=== PATIENT | female | born 1945 | race Caucasian/White ===

== ENCOUNTER 2018-12-07 16:00 | Outpatient (RCR) | payer MEDICARE, OTHER | END 2018-12-10 | LOC: PT 16:00 | PROVIDERS: ATTEND Specialist | DX: M47.816 Spondylosis without myelopathy or radiculopathy, lumbar region (principal) | CPT/HCPCS: 97139 ==

== ENCOUNTER 2018-12-30 16:00 | Outpatient (RCR) | payer MEDICARE, OTHER | END 2019-01-09 | LOC: PT 16:00 | PROVIDERS: ATTEND Specialist | DX: M47.816 Spondylosis without myelopathy or radiculopathy, lumbar region (principal); M54.5 Low back pain; M62.81 Muscle weakness (generalized); R26.2 Difficulty in walking, not elsewhere classified; M79.605 Pain in left leg; M79.662 Pain in left lower leg ==

== ENCOUNTER → 2020-01-10 | Outpatient (RCR) | payer MEDICARE, OTHER | LOC: PT 11:07 | PROVIDERS: ATTEND Specialist | DX: M75.42 Impingement syndrome of left shoulder (principal); M75.41 Impingement syndrome of right shoulder ==

== ENCOUNTER 2020-02-09 09:55 | Outpatient (RCR) | payer MEDICARE, OTHER | END 2020-02-10 | LOC: PT 09:55 | PROVIDERS: ATTEND Specialist | DX: M75.42 Impingement syndrome of left shoulder (principal); M75.41 Impingement syndrome of right shoulder | CPT/HCPCS: 97139 ==

== ENCOUNTER 2020-02-15 11:22 | Outpatient (RCR) | payer MEDICARE, OTHER | END 2020-03-12 | LOC: PT 11:22 | PROVIDERS: ATTEND Specialist | DX: M75.42 Impingement syndrome of left shoulder (principal); M75.41 Impingement syndrome of right shoulder ==

== ENCOUNTER 2024-10-01 20:18 | Inpatient (IN) | payer MEDICARE, OTHER ==
[~2024-10-01] VITALS: Ht 160 cm; Wt 80.7 kg
[2024-10-01 21:06] LABS: BASOPHILS % 0.2 % (0.0-1.0); EOSINOPHILS % 0.2 % (0.0-6.0); LYMPHOCYTES % 5.1 % (18.0-39.1); MONOCYTES % 4.4 % (4.4-11.3); NEUTROPHILS % 89.2 % (38.7-80.0); RED CELL DISTRIBUTION WIDTH 15.7 % (11.7-14.4)
[2024-10-01] MEDS: SODIUM CHLORIDE 0.9% 1000ML 1,000 ML IV ONE ×2 (21:12→23:21)
[2024-10-01 21:29] LABS: EST GLOMERULAR FILTRATION RATE 49.0 ML/MIN (>=60)
[2024-10-01] MEDS ORDERED: IOPAMIDOL 370 MG/ML 100 ML INFUS..BTL INJ ONE (21:52)
[2024-10-01] MEDS: CEFEPIME 2 GM in SODIUM CHLORIDE 0.9% 100 ML IV ONE (22:56)
[2024-10-01] MEDS: Morphine 4mg INJECTION 4 MG/ML INJ IV ONE (23:21)
[2024-10-02] VITALS (42 sets, daily range): BP systolic 90–150; BP diastolic 55–117; PULSE 27–94; RESP 14–36; TEMP 98–99.8; O2SAT 78–100
[2024-10-02] MEDS: ASPIRIN 81 MG CHEW TAB PO ONE (01:31)
[2024-10-02] MEDS: ALBUTEROL SULF 0.083% NEB SOLN 3 ML NEB NEB SCH (02:00)
[2024-10-02] MEDS: KCL 20MEQ/.9 SOD CHL 1,000 ML IV ONE (02:15)
[2024-10-02 02:33] LABS: LEUKOCYTE ESTERASE ,URINE NEGATIVE (NEGATIVE); PROTEIN,URINE DIPSTICK NEGATIVE (NEGATIVE); URINE UROBILINOGEN 0.2 mg/dL (0.2 - 1)
[2024-10-02 02:56] LABS: EPITHELIAL CELLS,URINE FEW /LPF; WBC,URINE (MAN) 0-5 /HPF (0-5)
[2024-10-02] MEDS: SODIUM CHLORIDE 0.9% 1000ML 1,000 ML IV ONE (03:16)
[2024-10-02] MEDS: ALBUTEROL SULF 0.083% NEB SOLN 3 ML NEB NEB STA (05:55)
[2024-10-02] MEDS: IPRATROPIUM BROMIDE 0.02% 2.5 ML NEB NEB ONE (05:56)
[2024-10-02] MEDS: NOREPINEPHRINE 8 MG/D5W 250 ML 250 ML IV SCH (06:21)
[2024-10-02] MEDS: IPRATROPIUM BROMIDE 0.02% 2.5 ML NEB NEB SCH (09:56)
[2024-10-02] MEDS ORDERED: ALBUTEROL SULF 0.083% NEB SOLN 3 ML NEB NEB PRN (11:15)
[2024-10-02] MEDS: METHYLPREDNISOLONE SOD SUCC 40 MG/ML VIAL 1ML IV ONE (11:38)
[2024-10-02] MEDS: CEFTRIAXONE 2 GM in SODIUM CHLORIDE 0.9% 100 ML IV SCH (11:38)
[2024-10-02] MEDS: POTASSIUM CHLORIDE 20MEQ/100ML 200 ML IV ONE (11:39)
[2024-10-02] MEDS: MUPIROCIN 2% OINT 22 GM TUBE TOP SCH (11:39)
[2024-10-02 14:19] LABS: CORONAVIRUS COVID-19 AG NEGATIVE (NEGATIVE)
[2024-10-02] MEDS ORDERED: ANORO ELLIPTA1 EACH (16:37)
[2024-10-02] MEDS ORDERED: LISINOPRIL5 MG PO (16:38)
[2024-10-02] MEDS: ALBUTEROL SULF 0.083% NEB SOLN 3 ML NEB NEB PRN (19:13)
[2024-10-03] VITALS (31 sets, daily range): BP systolic 115–184; BP diastolic 62–89; PULSE 69–96; RESP 17–33; TEMP 97.4–98.1; O2SAT 89–100
[2024-10-03] MEDS: IPRATROPIUM BROMIDE 0.02% 2.5 ML NEB NEB PRN (06:14)
[2024-10-03 06:44] LABS: BASOPHILS % 0.2 % (0.0-1.0); EOSINOPHILS % 0.0 % (0.0-6.0); LYMPHOCYTES % 7.0 % (18.0-39.1); MONOCYTES % 4.7 % (4.4-11.3); NEUTROPHILS % 87.4 % (38.7-80.0); RED CELL DISTRIBUTION WIDTH 16.0 % (11.7-14.4)
[2024-10-03 06:54] LABS: EST GLOMERULAR FILTRATION RATE 70.0 ML/MIN (>=60)
[2024-10-03] MEDS: GUAIFENESIN 600MG/DEXTROMETHORPHAN 30MG TABSR PO SCH (08:56)
[2024-10-03] MEDS: METHYLPREDNISOLONE SOD SUCC 40 MG/ML VIAL 1ML IV ONE (11:17)
[2024-10-03 12:30] LABS: BAND NEUTROPHILS % (MANUAL) 7 %; LYMPHOCYTES % (MANUAL) 2 % (19-48); MONOCYTES % (MANUAL) 2 % (3.4-9.0); NEUTROPHILS % (MANUAL) 88 % (40-74); REACTIVE LYMPHOCYTES 1
[2024-10-03 12:31] LABS: PLATELET ESTIMATE ADEQUATE; PLATELET MORPHOLOGY COMMENT NORMAL; RBC MORPHOLOGY COMMENT NORMAL
[2024-10-04] VITALS (24 sets, daily range): BP systolic 131–176; BP diastolic 72–99; PULSE 61–100; RESP 17–38; TEMP 97.9–98.6; O2SAT 96–100
[2024-10-04 06:36] LABS: BASOPHILS % 0.1 % (0.0-1.0); EOSINOPHILS % 0.0 % (0.0-6.0); LYMPHOCYTES % 8.3 % (18.0-39.1); MONOCYTES % 5.5 % (4.4-11.3); NEUTROPHILS % 85.6 % (38.7-80.0); RED CELL DISTRIBUTION WIDTH 15.9 % (11.7-14.4)
[2024-10-04 06:54] LABS: EST GLOMERULAR FILTRATION RATE 78.0 ML/MIN (>=60)
[2024-10-04] MEDS: METHYLPREDNISOLONE SOD SUCC 40 MG/ML VIAL 1ML IV ONE (10:24)
[2024-10-04] MEDS: LORAZEPAM INJ 2 MG/ML VIAL IV ONE (11:13)
[2024-10-04] MEDS ORDERED: LORAZEPAM INJ 2 MG/ML VIAL IV ONE (11:15)
[2024-10-04] MEDS ORDERED: IOPAMIDOL 370 MG/ML 100 ML INFUS..BTL INJ ONE (11:29)
[2024-10-04] MEDS: DEXMEDETOMIDINE 400MCG/NS100ML 100 ML IV PRN (14:25)
[2024-10-05] VITALS (23 sets, daily range): BP systolic 103–160; BP diastolic 58–119; PULSE 37–85; RESP 17–29; TEMP 96.8–98.3; O2SAT 89–100
[2024-10-05 06:12] LABS: BASOPHILS % 0.2 % (0.0-1.0); EOSINOPHILS % 0.1 % (0.0-6.0); LYMPHOCYTES % 15.4 % (18.0-39.1); MONOCYTES % 6.4 % (4.4-11.3); NEUTROPHILS % 77.4 % (38.7-80.0); RED CELL DISTRIBUTION WIDTH 15.8 % (11.7-14.4)
[2024-10-05 06:37] LABS: EST GLOMERULAR FILTRATION RATE 68.0 ML/MIN (>=60)
[2024-10-05] MEDS: LEVALBUTEROL HCL SOLN NEBU 0.63 MG/3 ML NEB INH SCH (13:54)
[2024-10-05] MEDS ORDERED: KETAMINE HCL INJ 50 MG/ML 10 ML VIAL ONE (18:56)
[2024-10-05] MEDS: LORAZEPAM INJ 2 MG/ML VIAL IV PRN (19:48)
[2024-10-05] MEDS: LORAZEPAM INJ 2 MG/ML VIAL ONE (19:49)
[2024-10-05] MEDS: METHYLPREDNISOLONE SOD SUCC 125 MG/2ML VIAL IV ONE (19:49)
[2024-10-05 21:10] LABS: ABG BASE EXCESS 4.0 mmol/L (-2 - 3); ABG HCO3 30 mmol/L (22-26); ABG OXYGEN SATURATION 100.0 % (95-98); ABG PCO2 56 mmHg (35-45); ABG PH 7.33 (7.35-7.45); ABG PO2 349 mmHg (80-105); ABG TCO2 32
[2024-10-05] MEDS: HYDRALAZINE HCL 20 MG/ML VIAL IV PRN (23:09)
[2024-10-05 23:29] LABS: BASOPHILS % 0.2 % (0.0-1.0); EOSINOPHILS % 0.2 % (0.0-6.0); LYMPHOCYTES % 6.6 % (18.0-39.1); MONOCYTES % 3.5 % (4.4-11.3); NEUTROPHILS % 88.9 % (38.7-80.0); RED CELL DISTRIBUTION WIDTH 15.6 % (11.7-14.4)
[2024-10-05 23:45] LABS: EST GLOMERULAR FILTRATION RATE 67.0 ML/MIN (>=60)
[2024-10-06] VITALS (67 sets, daily range): BP systolic 106–177; BP diastolic 57–164; PULSE 32–143; RESP 14–30; TEMP 96.9–98.4; O2SAT 80–100
[2024-10-06] MEDS ORDERED: LEVALBUTEROL HCL SOLN NEBU 1.25 MG/3 ML NEB INH PRN (05:15)
[2024-10-06] MEDS ORDERED: GUAIFENESIN/DEXTROMETHORPHAN LIQD 5 ML UDC NG PRN (05:15)
[2024-10-06 07:57] LABS: BASOPHILS % 0.2 % (0.0-1.0); EOSINOPHILS % 0.0 % (0.0-6.0); LYMPHOCYTES % 10.5 % (18.0-39.1); MONOCYTES % 3.2 % (4.4-11.3); NEUTROPHILS % 83.8 % (38.7-80.0); RED CELL DISTRIBUTION WIDTH 15.7 % (11.7-14.4)
[2024-10-06 08:38] LABS: EST GLOMERULAR FILTRATION RATE 75.0 ML/MIN (>=60)
[2024-10-06] MEDS ORDERED: SODIUM CHLORIDE 0.9% 100 ML ONE (09:47)
[2024-10-07] VITALS (22 sets, daily range): BP systolic 112–167; BP diastolic 54–84; PULSE 55–123; RESP 16–30; TEMP 96.9–98.8; O2SAT 94–100
[2024-10-07 06:32] LABS: BASOPHILS % 0.4 % (0.0-1.0); EOSINOPHILS % 1.0 % (0.0-6.0); LYMPHOCYTES % 15.1 % (18.0-39.1); MONOCYTES % 7.8 % (4.4-11.3); NEUTROPHILS % 75.0 % (38.7-80.0); RED CELL DISTRIBUTION WIDTH 15.6 % (11.7-14.4)
[2024-10-07 06:48] LABS: EST GLOMERULAR FILTRATION RATE 76.0 ML/MIN (>=60)
[2024-10-07] MEDS: QUETIAPINE FUMARATE 25 MG TAB PO SCH (09:24)
[2024-10-07] MEDS ORDERED: AMIODARONE 900MG 900 MG in Premix Bag 1 BAG IV SCH (17:15)
[2024-10-07] MEDS: AMIODARONE HCL 150 MG/100 ML BAG IV ONE (17:30)
[2024-10-07] MEDS: AMIODARONE 900MG 500 ML IV SCH (17:45)
[2024-10-07] MEDS ORDERED: METOPROLOL SUCCINATE 25 MG TAB XL PO ONE (18:15)
[2024-10-07 18:29] LABS: EST GLOMERULAR FILTRATION RATE 78.0 ML/MIN (>=60)
[2024-10-07 19:21] LABS: ABG PH 7.44 (7.35-7.45)
[2024-10-07 19:22] LABS: ABG BASE EXCESS -1.0 mmol/L (-2 - 3); ABG HCO3 23 mmol/L (22-26); ABG OXYGEN SATURATION 96.0 % (95-98); ABG PO2 77 mmHg (80-105); ABG TCO2 24
[2024-10-07 19:23] LABS: ABG PCO2 35 mmHg (35-45)
[2024-10-07] MEDS: ENOXAPARIN INJ 80 MG/0.8 ML SYR SC SCH (21:14)
[2024-10-08] VITALS (19 sets, daily range): BP systolic 122–186; BP diastolic 54–144; PULSE 70–123; RESP 15–26; TEMP 97.2–98.6; O2SAT 96–100
[2024-10-08] MEDS: METOPROLOL SUCCINATE 25 MG TAB XL PO SCH ×2 (00:30→11:11)
[2024-10-08] MEDS: POTASSIUM CHLORIDE 20 MEQ TAB CR PO ONE (08:33)
[2024-10-08] MEDS: MAGNESIUM SULFATE 2GM/50ML 50 ML IV ONE (08:35)
[2024-10-08] MEDS: AMIODARONE HCL 200 MG TAB PO SCH (16:53)
[2024-10-08] MEDS: SENNOSIDES 8.6 MG TAB PO SCH (17:02)
[2024-10-09] VITALS (13 sets, daily range): BP systolic 128–175; BP diastolic 61–87; PULSE 71–88; RESP 14–25; TEMP 97.7–98.5; O2SAT 97–100
[2024-10-09 07:20] LABS: BASOPHILS % 0.3 % (0.0-1.0); EOSINOPHILS % 1.3 % (0.0-6.0); LYMPHOCYTES % 9.5 % (18.0-39.1); MONOCYTES % 7.1 % (4.4-11.3); NEUTROPHILS % 81.1 % (38.7-80.0); RED CELL DISTRIBUTION WIDTH 15.8 % (11.7-14.4)
[2024-10-09 08:24] LABS: EST GLOMERULAR FILTRATION RATE 86.0 ML/MIN (>=60)
[2024-10-09] MEDS: ACETAMINOPHEN 325 MG TAB PO PRN (13:28)
[2024-10-09] MEDS: NICOTINE 14 MG/EA PATCH TOP SCH (18:09)
[2024-10-09] MEDS: LOSARTAN POTASSIUM 25 MG TAB PO SCH (18:09)
[2024-10-09] MEDS: LIDOCAINE 4% PATCH TP SCH (21:32)
[2024-10-10] VITALS (13 sets, daily range): BP systolic 121–154; BP diastolic 53–81; PULSE 66–77; RESP 18–22; TEMP 97.6–98.8; O2SAT 94–100
[2024-10-10 06:05] LABS: BASOPHILS % 0.3 % (0.0-1.0); EOSINOPHILS % 2.3 % (0.0-6.0); LYMPHOCYTES % 15.1 % (18.0-39.1); MONOCYTES % 8.6 % (4.4-11.3); NEUTROPHILS % 73.0 % (38.7-80.0); RED CELL DISTRIBUTION WIDTH 15.9 % (11.7-14.4)
[2024-10-10 06:24] LABS: EST GLOMERULAR FILTRATION RATE 71.0 ML/MIN (>=60)
[2024-10-10] MEDS: ENOXAPARIN SOD INJ 40 MG/0.4 ML SYR SC SCH (18:05)
[2024-10-10] MEDS: BISACODYL 5 MG TAB EC PO PRN (18:06)
[2024-10-11] VITALS (8 sets, daily range): BP systolic 148–161; BP diastolic 61–78; PULSE 73–81; RESP 17–20; TEMP 97.8–98.7; O2SAT 94–98
[2024-10-11] MEDS: POTASSIUM CHLORIDE 20 MEQ TAB CR PO STA ×2 (08:49→09:00)
[2024-10-11] MEDS: LOSARTAN POTASSIUM 25 MG TAB PO SCH (09:01)
[2024-10-13 06:25] LABS: ABG BASE EXCESS -1.0 mmol/L (-2 - 3); ABG HCO3 23 mmol/L (22-26); ABG OXYGEN SATURATION 96.0 % (95-98); ABG PCO2 35 mmHg (35-45); ABG PH 7.44 (7.35-7.45); ABG PO2 77 mmHg (80-105); ABG TCO2 24
[2024-10-13 06:35] LABS: ABG BASE EXCESS 4.0 mmol/L (-2 - 3); ABG HCO3 30 mmol/L (22-26); ABG OXYGEN SATURATION 100.0 % (95-98); ABG PCO2 56 mmHg (35-45); ABG PH 7.33 (7.35-7.45); ABG PO2 349 mmHg (80-105); ABG TCO2 32
== END 2024-10-11 15:50 | DRG 871 ==
LOC: ER 20:44 → ERHOLD 10-02 00:45 → ICU 10-02 07:58 → IMCU 10-04 22:03 → ICU 10-05 19:34 → MED/SURG2 10-09 14:45
PROVIDERS: ADMIT Internal Medicine; ATTEND Internal Medicine
PROC: 3E03329 Introduction of Other Anti-infective into Peripheral Vein, Percutaneous Approach (ICD-10-PCS; principal; 2024-10-02)
PROC: 02HV33Z Insertion of Infusion Device into Superior Vena Cava, Percutaneous Approach (ICD-10-PCS; 2024-10-02)
PROC: B548ZZA Ultrasonography of Superior Vena Cava, Guidance (ICD-10-PCS; 2024-10-02)
PROC: 5A09357 Assistance with Respiratory Ventilation, Less than 24 Consecutive Hours, Continuous Positive Airway Pressure (ICD-10-PCS; 2024-10-05)
PROC: 3E033XZ Introduction of Vasopressor into Peripheral Vein, Percutaneous Approach (ICD-10-PCS; 2024-10-05)
PROC: 5A0945A Assistance with Respiratory Ventilation, 24-96 Consecutive Hours, High Flow/Velocity Cannula (ICD-10-PCS; 2024-10-05)
PROC: 4A033R1 Measurement of Arterial Saturation, Peripheral, Percutaneous Approach (ICD-10-PCS; 2024-10-05)
PROC: 4A033R1 Measurement of Arterial Saturation, Peripheral, Percutaneous Approach (ICD-10-PCS; 2024-10-05)
PROC: 4A033R1 Measurement of Arterial Saturation, Peripheral, Percutaneous Approach (ICD-10-PCS; 2024-10-07)
PROC: 4A033R1 Measurement of Arterial Saturation, Peripheral, Percutaneous Approach (ICD-10-PCS; 2024-10-07)
DX: A41.9 Sepsis, unspecified organism (principal); G93.41 Metabolic encephalopathy; J18.9 Pneumonia, unspecified organism; R65.21 Severe sepsis with septic shock; J96.02 Acute respiratory failure with hypercapnia; J96.01 Acute respiratory failure with hypoxia; J44.0 Chronic obstructive pulmonary disease with (acute) lower respiratory infection; J44.1 Chronic obstructive pulmonary disease with (acute) exacerbation; I47.19 Other supraventricular tachycardia; E87.6 Hypokalemia; I95.9 Hypotension, unspecified; F17.200 Nicotine dependence, unspecified, uncomplicated; E87.5 Hyperkalemia; F41.9 Anxiety disorder, unspecified; Z78.1 Physical restraint status; R53.81 Other malaise; D64.9 Anemia, unspecified; I10 Essential (primary) hypertension; I49.1 Atrial premature depolarization; I48.91 Unspecified atrial fibrillation; K57.30 Diverticulosis of large intestine without perforation or abscess without bleeding; K21.9 Gastro-esophageal reflux disease without esophagitis; K76.0 Fatty (change of) liver, not elsewhere classified; E66.812 Obesity, class 2; Z68.31 Body mass index [BMI] 31.0-31.9, adult; Z71.3 Dietary counseling and surveillance; Z85.820 Personal history of malignant melanoma of skin
CPT/HCPCS: 36415; 36569; 36600; 71045; 71260; 74177; 80048; 80053; 81001; 82550; 82805; 82948; 83605; 83690; 83735; 83880; 84484; 85025; 87040; 93005; 93306; 94660; 94799; 99285; J0360; J0692; J0696; J1650; J2060; J2470; J2919; J3475; J3480; J7030; J7050; Q9967